=== PATIENT | male | born 1955 | race Caucasian/White ===

== ENCOUNTER 2016-12-05 20:45 | Emergency (ER) | payer BC ==
[2016-12-05 20:46] VITALS: BP 116/87
--- OUTSIDE RECORDS SUMMARY | 2016-12-05 21:50 | XMS REPORT | Continuity of Care Document ---
:1955 Author Organization [facility] ([facility]) Address [address] [place] [address] Phone [phone] Care Team Providers Name Role Phone Wen Degroot Primary Care Provider [phone] Source Comments This disclosure is being made pursuant to the Care Everywhere program, applicable federal and state laws, and may not contain all informaitonavailable regarding this patient.[facility] ([facility]) Active Allergies and Adverse Reactions Allergen Noted Date Severity Reactions Comments Iodinated Contrast Media - 09/05/2015 OTHER Patient reports "coma" Oral And Iv Dye after cerebral angiogram Current Medications Prescription Sig. Disp. Refills Start Date End Date Status multivitamin with Take 1 tablet Active minerals tablet by mouth daily. cholecalciferol Take 1,000 Active (VITAMIN D3) 1,000 Units by unit tablet mouth daily. isosorbide Take 30 mg by 1 08/06/2016 Active mononitrate 30 mg CR mouth daily. tablet metoPROLol succinate Take 50 mg by 0 09/17/2016 Active 50 mg XL tablet mouth at bedtime. hydrALAZINE 25 mg Take 25 mg by Active tablet mouth 3 times daily. lisinopril 10 mg Take 1 tablet 60 tablet 6 10/22/2016 Active tablet (10 mg total) by mouth 2 times daily. apixaban (ELIQUIS) 5 Take 1 tablet 60 tablet 3 11/27/2016 Active mg tablet (5 mg total) by mouth 2 times daily. amiodarone 200 mg Take 2 70 tablet 11 08/01/2016 Discontinued tablet tablets (400 7 mg) 2 times daily for 5 more days, then1 tablet (200 mg total) 2 times daily for 10 days. Then (200mg) daily thereafter. apixaban (ELIQUIS) 5 Take 1 tablet 60 tablet 3 08/01/2016 Discontinued mg tablet (5 mg total) 7 by mouth 2 times daily. 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 Cardiomyopathy 10/17/2015 Essential hypertension 10/17/2015 Chronic renal insufficiency 10/17/2015 Atrial flutter 09/07/2015 Acute systolic heart failure, ACC/AHA stage C 09/07/2015 Alcohol abuse 09/07/2015 Current smoker 09/07/2015 Resolved Problems Problem Noted Date Resolved Date Irregular heart rhythm 07/29/2016 08/01/2016 Malaise and fatigue 10/17/2015 10/17/2015 Most Recent Encounters Date Type Specialty Providers Description 11/27/2016 Hospital Encounter Internal Medicine Alcides Chacko Dx: Typical atrial - Primary MD Maddy flutter 11/27/2016 Telephone Heart and Vascular Alcides Chacko Dx: Irregular heart MD Maddy rhythm (Primary Dx) 11/27/2016 Surgery Cardiology Shamir Corea ABLATION A-FLUTTER 10/22/2016 Hospital Encounter Heart and Vascular Default, Other Dx: Hematospermia Billg - Defo (Primary Dx) Hamlet Romero MD 10/22/2016 Office Visit Heart and Vascular Default, Other Dx: Typical atrial Billg - Defo flutter (Primary Dx) Alcides hCacko MD Social History Tobacco Use Types Packs/Day Years Used Date Former Smoker Quit: 09/11/2016 Comments:one pack cigs lasts 2 weeks Alcohol Use Drinks/Week oz/Week Comments Yes 24 Cans of beer 14.4 Last Filed Vital Signs Vital Sign Reading Time Taken Blood Pressure 141/61 11/27/2016 4:01 PM CDT Pulse 70 11/27/2016 12:52 PM CDT Temperature 36 C (96.8 F) 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/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 Respiratory Rate 16 11/27/2016 8:40 AM CDT Height 1.981 m (6' 6") 11/27/2016 8:38 AM CDT Weight 108.863 kg (240 lb) 11/27/2016 8:38 AM CDT Body Mass Index 27.74 11/27/2016 8:38 AM CDT Oxygen Saturation 95% 11/27/2016 4:01 PM CDT Plan of Care Health Maintenance Due Date Last Done Comments HCV Screening 1955 Hepatitis B Vaccine (1 of 3 - Primary 1955 Series) Tdap Vaccine 12/06/1967 MMR Vaccine 1974 Td Vaccine 1974 Pneumococcal Vaccine (1 of 1 - PPSV23) 12/06/1975 Colonoscopy 2006 Prostate Cancer Screening 2006 Lipid Disorder Screening 09/08/2020 09/08/2015, 12/14/1997 Influenza Vaccine: Seasonal Completed Results from Last 3 Months CARD EP PROCEDURE (11/27/2016 1:01 PM) Shamir Luciano MD 11/30/20163:11 PM Atrial Flutter Ablation Procedure Report. Date: 11/27/2016 EP Attending:Shamir Corea MD, PhD EP Fellow:Chris Montejo MD, MPH Procedures:Electrophysiology study Radiofrequency ablation of atrial flutter Left atrial pacing via the coronary sinus Ultrasound guided femoral venous access Indications: 60-year-old gentleman with history of atrial flutter back in early 2015. 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 He underwent cardioversion, and over time did well. He returned in late July, with another episode of atrial flutter, again with poor LV function, and underwent cardioversion by Dr. Lenz. He was seen on follow up in EP clinic and after understanding treatment options, risks and benefits he elected to proceed with atrial flutter ablation for which he presents today. He is on apixaban for anticoagulation and has been taking same regularly. Arrives in sinus rhythm. Description After the risks and benefits of the procedure were explained and informed consent was obtained, the patient was brought to the electrophysiology lab in the unsedated and fasting state.He was connected to the EP lab monitoring system.Moderate conscious sedation was obtained with IV versed and IV fentanyl.The right groin was prepared and draped in a sterile fashion.Local anesthesia with lidocaine solution was used for the right groin vascular access sites.Using the modified Seldinger technique with ultrasound guidance, the following sheaths and catheters were inserted: 1. An 8.5 F and 7 F sheaths were placed in the right femoral vein.For additional support, the 8 F sheath was exchanged over a wire for a SR O sheath during the procedure. 2. A 7 F deflectable F/J curve coronary sinus (CS) catheter was inserted through the 7 F sheath and advanced into the coronary sinus (CS) for right and left atrial recording and pacing. 3. An 8 F [employer] Sánchez SmartTouch F-J Ablation Catheter was inserted through the 8.5 F sheath and advanced to the caval tricuspid isthmus (CTI) for mapping and ablation.This catheter was also used for mapping His potentials, CTI potentials (for multi-site tachycardia mapping), pacing/recording from the lateral RA, CTI, and advanced into the RV for pacing/recording from the RV.A CARTO mapping system was utilized during the procedure. The patient arrived in the electrophysiology laboratory in sinus rhythm.A diagnostic EP study was performed.Pacing and recording was performed from the right atrium, left atrium via the coronary sinus, and the right ventricle.Baseline intervals were recorded.Retrograde RV pacing was used to determine the VA block CL/evaluate VA conduction.Burst pacing was performed in the right and left atria without induction of sustained atrial arrhythmias. At baseline the cavotricuspid isthmus (CTI) time from the low RA (LRA) to CS was 86 ms and from the CS to LRA was 84 ms. Radiofrequency ablation of the CTI was then performed from the tricuspid valve to the inferior vena cava through the mid portion of the CTI using fluoroscopic guidance.CTI ablation was challenging due to a prominent Eustachian pouch and ridge. It was difficult to successfully ablate the lower lip of the isthmus near the IVC and required placement of a SR O sheath and reverse curve on the ablation catheter.During the procedure, the 8.5 F sheath was exchanged over a wire for a SR O Sheath for additional support, reach for the ablation catheter.Post ablation, bidirectional conduction block across the cavotricuspid isthmus was verified by pacing and mapping on either side of the ablation line and from within the coronary sinus.Post ablation, the CTI time from the LRA to CS was 181 ms and from the CS to LRA was 178 ms.A 20 minute observation period was allowed after the last ablation lesin and prior to repeating the pacing maneuvers. Evidence of bidirectional isthmus block persisted throughout the remainder of the study.Programmed atrial and burst pacing was performed in the right and left atria without induction of sustained atrial arrhythmias. At the end of the procedure, she remained in normal sinus rhythm. Catheters and sheaths were removed and hemostasis was obtained by direct manual pressure.He was allowed to awaken from sedation and then returned to his room in CPRU for post procedural monitoring. [place]/Red dots denote ablation lesions on CTI. Gold dots denote His position. Electrophysiology Study Data ECG (baseline): sinus rhythm, within normal limits ECG (post RFA): sinus rhythm, within normal limits Intervals Finding Baseline Rhythm NSR RR 885 AH 60 HV 45 VA 186 QRS 112 QT 420 Sinus node recovery time (SNRT) Pacing cycle length (ms) Basic cycle length (ms) SNRT (ms) Corrected SNRT (ms) 304 585 2285 485 319 515 3156 373 063 967 2478 531 Stimulation measurements Baseline AV block (Wenckebach) cycle length:410 ms (LA via the CS). Rare-related LBBB was noted with pacing cycle-length < 480 ms. AV Node ERP (AVNERP): 330 ms @ 600 ms (LA via CS) VA conduction, VA Wenckebach CL: 590 ms, decremental & concentric CTI times (LRA to CS=86 ms; CS to LRA=84 ms) Post ablation Bidirectional CTI block (LRA to UD=352 ms; CS to LRA sleh=617 ms) AV block (Wenckebach) cycle length:380 ms (HRA) Arrhythmias: none Complicationsnone Specimennone Estimated blood loss< 10 cc Conclusions 1.Femoral venous access with ultrasound guidance. 2.Baseline sinus rhythm with normal AH and HV intervals. 3.Normal sinus node function. 4.Normal AV node function. 5.Normal infra-Hisian function. 6.Decremental, concentric VA conduction without evidence of accessory pathway conduction. 7.No inducible SVT at baseline. 8.Successful caval tricuspid isthmus (CTI) ablation.Prominent pouch and ridge, with a gjkyplyoy-yc-weybaw lower lip of the CTI at the IVC junction.Support sheath required for ablation.Post ablation, bidirectional CTI block. Dr. Corea was present for the entire procedure. Chris Montejo MD MPH Fellow, Cardiovascular Medicine EP Attending I saw and evaluated the patient with the EP Fellow, Dr. Montejo, on . I discussed the case with the fellow and I agree with the findings and plan as documented in the note.I was present for the entire procedure. Shamir Corea MD, PhD Electrophysiology TYPE AND SCREEN (BLOOD TYPE(ABORH) AND RBC ANTIBODY SCREEN) (11/27/2016 8:54 AM ) Component Value Range ABORH A Positive Specimen Expiration Date 2016-11-30 Antibody Screen Negative Specimen Blood CHLORIDE (11/27/2016 8:51 AM) Component Value Range Chloride 103 95-107 mEq/L Specimen Blood BLOOD UREA NITROGEN (11/27/2016 8:51 AM) Component Value Range BUN 21(H) 10-20 mg/dL Specimen Blood SODIUM (11/27/2016 8:51 AM) Component Value Range Sodium 142 135-145 mEq/L Specimen Blood POTASSIUM (11/27/2016 8:51 AM) Component Value Range Potassium 4.4 3.5-5.0 mEq/L Specimen Blood GLUCOSE (11/27/2016 8:51 AM) Component Value Range Glucose 98Comment: 65-99 mg/dL The Expert Committee on the Diagnosis and Classification of Diabetes has defined impaired fasting glucose as greater than or equal to 100 mg/dL but less than 126 mg/dL.(Diabetes Care 28 (Suppl 1)S41,2005) Specimen Blood CREATININE (11/27/2016 8:51 AM) Component Value Range Creatinine 1.3(H)Comment: 0.6-1.2 mg/dL Creatinine switched to enzymatic method on 01/07/2011.GFR equation switched to IDMS-traceable MDRD equation on 01/07/2011. Calculated GFR values are not valid in clinical settings where serum creatinine is changing. Calculated GFR 57(L) >60 mL/min/1.73 m2 Specimen Blood CO2 (11/27/2016 8:51 AM) Component Value Range CO2 25 22-29 mEq/L Anion Gap 14 8-18 mEq/L Specimen Blood CBC (COMPLETE BLOOD COUNT) (11/27/2016 8:51 AM) Component Value Range WBC Count 10.4 3.7-10.5 K/MM3 RBC Count 5.57 4.50-6.20 M/MM3 Hemoglobin 16.7 13.2-17.7 g/dL Hematocrit 50 40-52 % MCV (Mean Corpuscular Volume) 90 82-99 FL MCH (Mean Corpuscular Hemoglobin) 30 25-35 PG MCHC (Mean Corpuscular Hemoglobin Concentration) 33 32-36 % Platelet Count 237 150-400 K/MM3 MPV (Mean Platelet Volume) 10.9 9.4-12.3 FL RBC Dist Width-STD 52.5(H) 35.1-43.9 FL RBC Distrib Width 15.9(H) 9.0-14.5 % Nucleated RBC 0 /100 WBC Specimen Whole Blood PT/INR (PROTHROMBIN TIME/INR) VENOUS (11/27/2016 8:51 AM) Component Value Range PT (Prothrombin Time) 13(H) 9-12 secs INR 1.2 <4.0 Specimen Blood ECG - EKG 12 LEAD (11/27/2016 8:35 AM)Only the most recent of2 resultswithin the time period is included. Component Value Range ECG SEVERITY - ABNORMAL ECG - VENT. RATE 71 bpm RR 845 ms P-R INTERVAL 172 ms QRSD INTERVAL 122 ms QT INTERVAL 440 ms QTC INTERVAL 479 ms P AXIS 52 degrees QRS AXIS -1 degrees T WAVE AXIS 93 degrees REPORT SINUS RHYTHM [Now Present] NONSPECIFIC INTRAVENTRICULAR CONDUCTION DELAY [Insig. Chg.] LVH WITH SECONDARY REPOLARIZATION ABNORMALITY [More Prom.] ANTERIOR Q WAVES, POSSIBLY DUE TO LVH [Remains] SIGNIFICANT RHYTHM AND ECG CONTOUR CHANGES [Now Absent] SINUS BRADYCARDIA Interpreting Physician: Jarod Dodge MD ECHO ADULT - ECHOCARDIOGRAM, TRANSTHORACIC (10/22/2016 10:52 AM) Component Value Range Interpretation Summary TRANSTHORACIC ECHOCARDIOGRAM Enlarged left ventricle. Severely decreased LV systolic function. Enlarged right ventricle. Decreased right ventricular systolic function. Severe Tricuspid regurgitation by Doppler. Patient Height (cm) 198.1 cm Patient Weight (kg) 109.3 kg Systolic Pressure (mmHg) 149 mmHg Diastolic Pressure (mmHg) 101 mmHg BSA (meters^2) 2.4 m^2 Left Ventricle (LV) Enlarged left ventricle. Normal LV wall thickness. Severely decreased LV systolic function. LV Ejection Fraction=28% (based on Biplane Method of Discs). Right Ventricle (RV) Enlarged right ventricle. Decreased right ventricular systolic function. Left and Right Atria (LA, RA) LA chamber size: enlarged. LA ESV index=55 ml/m2. Enlarged right atrial size. Mitral Valve (MV) Normal mitral valve leaflet morphology Mild mitral regurgitation by Doppler. Tricuspid Valve (TV) Normal tricuspid valve morphology Severe Tricuspid regurgitation by Doppler. TR appears severe with vena contracta > 7 mm and hepatic vein flow reversal. Aortic Valve (AoV) Mildly calcified aortic valve leaflets Trileaflet Aortic valve Trace aortic insufficiency Pulmonic Valve (PV) Pulmonic valve is not visualized Aorta and Pulmonary Artery (Ao, PA) The aortic root is normal size. Pericardium/Pleura There is no pericardial effusion. Procedures Complete 2D with Doppler, Color Flow and image documentation ( [id number]) I personally viewed the echocardiogram and approve the above interpretation Inf. Vena Cava (IVC) / Pulm. Veins The IVC diameter is enlarged ( > 2.1 cm). It collapses less than 50% with inspiration.This would support an RA pressure of 15 mmHg (range 10-20 mmHg). Primary ICD-9 Code Palpitations (785.1) IVSd 1.1 cm LVIDd 5.6 cm LVIDs 4.8 cm LVPWd 1.0 cm IVS/LVPW 1.1 Ao root diam 2.8 cm Ao root area 6.2 cm^2 LA dimension 5.3 cm LA/Ao 1.9 LVOT diam 2.1 cm LVOT area 3.5 cm^2 LVAd ap4 45.6 cm^2 EF(MOD-sp4) 25.8 % TR Max juana 241.3 cm/sec Low Range of LVEF 28 High Range of LVEF 28 Reason For Study Palpitations/dysrhythmia Bakery Team Leader hSai Rucker Interpreting Physician Hamlet Romero MD electronically signed on 2016-10-22 11:47:34.253
== END 2016-12-05 21:05 ==
LOC: ER 20:45
DX: Z02.83 Encounter for blood-alcohol and blood-drug test (principal); Y90.7 Blood alcohol level of 200-239 mg/100 ml
CPT/HCPCS: 36415; G0481

== ENCOUNTER 2019-12-29 11:45 | Inpatient (IN) ==
[2019-12-29] MEDS ORDERED: FUROSEMIDE 10 MG/ML VIAL IV SCH (12:00)
--- NOTE | 2019-12-29 12:08 | HP ---
Chief Complaint - Chief Complaint Date of Service: 12/29/19 Time of Service: 11:30 Chief Complaint: Lower extremity swelling and shortness of breath x3 days History of Present Illness: 64-year-old male with a past medical history of systolic congestive heart failure, atrial fibrillation/flutter status post ablation, CKD 3, hypertension, nonischemic cardiomyopathy presents from home with complaints of shortness of breath with exertion and swelling for the past 3 days. Over the past 1 month he has gained about 10 pounds of fluid weight. He denies chest pain or abdominal pain. Swelling is from his feet to his low back. He was seen in my office today and was found to be tachycardic with a heart rate in the 140s. Oxygen level of 98% and the rest of his vitals are within normal limits. He has 2+ pitting edema in bilateral lower extremities and swelling up to his thighs and low back. I will be admitting the patient for observation with congestive heart failure exacerbation. Medical History (Last Reviewed 12/29/19 @ 12:18 by Milton Joseph RN) CHF (congestive heart failure) ACC/AHA STAGE C Cardiomyopathy EF 20-25% History of atrial fibrillation Hx of atrial flutter Surgical History: Surgical History (Last Reviewed 12/29/19 @ 12:18 by Milton Joseph RN) H/O prior ablation treatment History of cardiac cath Family History: Family History (Last Reviewed 12/29/19 @ 12:18 by Milton Joseph RN) Mother Cancer Father Diabetes Social History: (Last Updated 12/29/19 @ 13:11 by Yadira Tavarez MD) Social History: Marital status: number of children: 3 current occupational status: retired Highest education level completed: high school graduate Service: No Tobacco: Smoking Status: Former smoker Alcohol: alcohol intake: current Substance Use: substance use type: does not use Dietary Habits: caffeine: Yes Review Of Systems (GEN) - Review of Systems Generalized/Overall Review: Absent: Fever EENTM: Absent: Eye Pain Respiratory: Present: Shortness of Breath Cardiac: Present: Edema - Bilateral lower extremities up to the low back. Absent: Chest Pain Abdominal: Absent: Abdominal Pain Misc: All systems neg except as marked Immunizations: IMMUNIZATION HX Immunizations Up to Date Yes History of Influenza Vaccine No Hx Pneumococcal Vaccination No Allergies/Adverse Reactions: Allergies Allergy/AdvReac Type Severity Reaction Status Date / Time Iodinated Contrast Media Allergy Verified 12/29/19 12:18 Home Medications: HOME MEDICATIONS Cholecalciferol (Vitamin D3) [Vitamin D] 2,000 unit PO DAILY 12/20/18 [Last Taken Unknown] Multivit with Minerals/Ginseng [Super Ginseng Multivit Cap] 1 ea PO DAILY 12/20/18 [Last Taken Unknown] metoprolol succinate 50 mg tablet,extended release 24 hr 50 mg PO DAILY 04/01/19 [Last Taken Unknown] spironolactone 25 mg tablet See Rx Instructions .ROUTE .COMPLEX #30 tablet 10/03/19 [Last Taken Unknown] atorvastatin 20 mg tablet 20 mg PO DAILY #30 tab 11/04/19 [Last Taken Unknown] furosemide 20 mg tablet 60 mg PO DAILY #90 tab 11/04/19 [Last Taken Unknown] lisinopril 2.5 mg tablet 2.5 mg PO DAILY #30 tab 11/04/19 [Last Taken Unknown] Zinc 50 mg PO DAILY 12/29/19 [Last Taken Unknown] potassium chloride 20 mEq tablet,extended release 20 meq PO DAILY #4 tab [Last Taken Unknown] Exam - Exam Constitutional: Present: Alert, Cooperative, Well developed, Well nourished, No distress ENT Exam: Present: hearing grossly normal Eye Exam: bilateral eye: normal inspection Neck: Present: non-tender, supple. Absent: lymphadenopathy (R), lymphadenopathy (L) Back Exam: Present: other - Mild pitting edema in the low back, Respiratory: Present: lungs clear, no respiratory distress, no accessory muscle use, No wheezing. Absent: crackles, rhonchi Cardiovascular/Chest: Present: normal peripheral pulses, no murmur, tachycardia Peripheral Pulses: dorsalis-pedis (R): 1+, dorsalis-pedis (L): 1+ Abdomen: Present: Normal bowel sounds, soft, nontender Extremity: Present: lower extremity edema - 2+ pitting bilateral lower extremities up to posterior thighs and low back Skin Exam: Present: normal color, warm/dry Neurologic: Present: alert, normal mood/affect Appearance: Present: appropriate appearance, appropriate insight Eye contact: Present: cooperative Thoughts: Present: normal mood /affect Assessment/Plan - Narrative Narrative: 64-year-old male with a past medical history of systolic congestive heart failure, atrial fibrillation/flutter status post ablation, CKD 3, hypertension, nonischemic cardiomyopathy presents from home with complaints of shortness of breath with exertion and swelling for the past 3 days. Over the past 1 month he has gained about 10 pounds of fluid weight. He denies chest pain or abdominal pain. Swelling is from his feet to his low back. He was seen in my office today and was found to be tachycardic with a heart rate in the 140s. Oxygen level of 98% and the rest of his vitals are within normal limits. He has 2+ pitting edema in bilateral lower extremities and swelling up to his thighs and low back. I will be admitting the patient for observation with volume overload, A. fib with RVR, acute on chronic kidney injury, and CHF exacerbation. Plan #1 obtain CBC, CMP, BNP, EKG #2 admit for observation #3 diuresis with Lasix 60 mg twice daily #4 monitor potassium and replete as needed #5 Place him on telemetry #6 low-salt diet #7 strict I's and O's and daily weights #8 start Cardizem 20 mg IV x 1 dose, resume his home dose of metoprolol in the morning - Assessment/Plan (1) Atrial fibrillation with rapid ventricular response Problem: Acute (2) Acute exacerbation of congestive heart failure Problem: Acute Qualifiers: Heart failure type: systolic Qualified Code(s): I50.23 - Acute on chronic systolic (congestive) heart failure (3) Acute kidney injury superimposed on chronic kidney disease Problem: Acute (4) SOB (shortness of breath) on exertion Problem: Acute (5) Tachycardia with heart rate 121-140 beats per minute Problem: Acute (6) Volume overload Problem: Acute (7) Hypertension Problem: Chronic Qualifiers: Hypertension type: essential hypertension Qualified Code(s): I10 - Essential (primary) hypertension (8) Anxiety and depression Problem: Chronic
[2019-12-29 12:25] LABS: Hematocrit 52.4 % (42.0-52.0); Hemoglobin 17.1 gm/dL (13.5-18.0); Mean Cell Volume 97.4 fl (78-100); Mean Corpuscular Hemoglobin 31.8 pg (27-31); Mean Corpuscular Hgb Conc 32.6 g/dl (32-36); Mean Platelet Volume 10.3 fl (8-11.3); Neutrophil # 6.3 K/mm3 (1.3-6.0); Neutrophil % 71.8 % (42-75.0); Platelet Count 214 K/mm3 (150-450); Red Blood Count 5.38 M/mm3 (4.7-6.0); White Blood Count 8.8 K/mm3 (4.0-10.5)
[2019-12-29 12:40] LABS: Albumin * 3.2 gm/dl (3.4-5.0); BUN/Creatinine Ratio 24.4 (9.0-21.6); Bilirubin, Total 1.1 mg/dL (0.0-1.1); Ca. Corrected For Albumin 9.4 mg/dL (8.4-10.2); Calcium * 9.1 mg/dL (7.9-10.9); Carbon Dioxide 25.6 mmol/L (24-32.6); Potassium 4.6 mmol/L (3.4-4.6); Total Protein 6.8 gm/dL (6.2-8.2)
[2019-12-29] MEDS ORDERED: DILTIAZEM HCL 5 MG/ML VIAL IV ONE (13:57)
[2019-12-29] MEDS: FUROSEMIDE 10 MG/ML VIAL IV SCH (17:28)
[2019-12-29] MEDS ORDERED: METOPROLOL TARTRATE 1 MG/ML AMPUL IV ONE ×2 (22:59→23:07)
[2019-12-30 06:06] LABS: Hemoglobin 14.9 gm/dL (13.5-18.0); Mean Cell Volume 95.2 fl (78-100); Mean Corpuscular Hemoglobin 30.8 pg (27-31); Mean Corpuscular Hgb Conc 32.4 g/dl (32-36); Mean Platelet Volume 10.6 fl (8-11.3); Neutrophil # 5.2 K/mm3 (1.3-6.0); Neutrophil % 64.5 % (42-75.0); Platelet Count 212 K/mm3 (150-450); Red Blood Count 4.83 M/mm3 (4.7-6.0); Red Cell Distribution Width 14.6 % (11.5-14.0); White Blood Count 8.1 K/mm3 (4.0-10.5)
[2019-12-30 06:21] LABS: Albumin * 2.7 gm/dl (3.4-5.0); Anion Gap 12.3 mmol/L (6.8-13.8); BUN/Creatinine Ratio 26.3 (9.0-21.6); Ca. Corrected For Albumin 8.8 mg/dL (8.4-10.2); Calcium * 8.1 mg/dL (7.9-10.9); Potassium 4.3 mmol/L (3.4-4.6); Total Protein 5.6 gm/dL (6.2-8.2)
[2019-12-30] MEDS ORDERED: DILTIAZEM HCL 5 MG/ML VIAL IV ONE (07:55)
[2019-12-30] MEDS: FUROSEMIDE 10 MG/ML VIAL IV SCH ×2 (08:30→17:48)
[2019-12-30] MEDS: CHOLECALCIFEROL 1,000 UNIT CAPSULE PO SCH (08:42)
[2019-12-30] MEDS: ROSUVASTATIN CALCIUM 10 MG TABLET PO SCH (08:43)
[2019-12-30] MEDS: ZINC SULFATE 220 MG CAPSULE PO SCH (08:43)
[2019-12-30] MEDS: MULTIVIT WITH MINERALS PO SCH (08:43)
[2019-12-30] MEDS: SPIRONOLACTONE 25 MG TABLET PO SCH (08:43)
[2019-12-30] MEDS: POTASSIUM CHLORIDE 20 MEQ TABLET.SA PO SCH (08:43)
[2019-12-30] MEDS: GINSENG PO SCH (08:43)
[2019-12-30] MEDS: METOPROLOL SUCCINATE 50 MG TABLET.SA PO SCH (08:52)
[2019-12-30] MEDS ORDERED: LISINOPRIL 2.5 MG TABLET PO SCH (09:00)
[2019-12-30] MEDS: DILTIAZEM HCL 125 MG in DEXTROSE 5 % IN WATER 100 ML IV PRN ×4 (09:02→20:02)
[2019-12-30] MEDS ORDERED: ONDANSETRON 4 MG TAB.RAPDIS PO PRN (14:55)
--- NOTE | 2019-12-30 23:07 | PN ---
Subjective - Date and Time Seen Date: 12/30/19 Time: 09:00 Subjective Narrative: Patient laying comfortably in bed this morning. HR back in the 140s. He denies CP, SOB. Swelling still 2+ to below his knee. He is done roughly 5 lbs from admission. His SARAH minimally improved. He feels well and he is hemodynamically stable. Maintaining sats on room air. Objective - Review of Systems Generalized/Overall Review: Reports: No Symptoms Reported EENTM: Reports: No Symptoms Reported Respiratory: Denies: Cough, Shortness of Breath Cardiac: Denies: Chest Pain, Palpitations Abdominal: Reports: No Symptoms Reported Genitourinary Symptoms: Reports: No Symptoms Reported Musculoskeletal Complaints: Reports: No Symptoms Reported Skin: Reports: No Symptoms Reported - Vitals Vitals: Last Vital Signs Temp 37.0 C 12/30/19 14:50 Pulse 99 12/30/19 21:00 Resp 20 12/30/19 21:00 BP 133/77 12/30/19 21:00 Pulse Ox 95 12/30/19 19:00 - Abnormal Lab Findings Abnormal Lab Findings: Abnormal Lab Results 12/30/19 12/30/19 Range/Units 05:50 05:50 RDW 14.6 H (11.5-14.0) % Monocytes % 10.7 H (0.0-9) % BUN 60 H (6-23) mg/dL Creatinine 2.28 H (0.4-1.4) mg/dL Est GFR (Non-Af Amer) 31 L (60-130) mL/min BUN/Creatinine Ratio 26.3 H (9.0-21.6) Alkaline Phosphatase 408 H (50-170) U/L Total Protein 5.6 L (6.2-8.2) gm/dL Albumin 2.7 L (3.4-5.0) gm/dl - Exam Constitutional: Present: Alert, Oriented x3 ENT Exam: Present: hearing grossly normal Neck: Present: full range of motion, supple Respiratory: Present: lungs clear, normal breath sounds Cardiovascular/Chest: Present: no murmur, irregularly irregular Abdomen: Present: soft, nontender Extremity: Present: swelling - 2+ edema b/l to just below the knees Skin Exam: Present: cool/dry Appearance: Present: appropriate appearance, appropriate insight Eye contact: Present: cooperative, good eye contact Thoughts: Present: normal thought pattern, normal mood /affect Assessment/Plan Plan Narrative: Patient started on diltiazem drip, titrate as needed. Will increase dose of toprol. Monitor HR with target rate between 90-100 SARAH unchanged. NOt worsening with diuresis, down 5 lbs. Continue lasix. Swelling appears to have improved some compared to admission VSS are stable, breathing easy. WIll wean drip once second dose of toprol administered. Continue chronic meds. Nurse to call with questions or concerns. Changed to inpatient. Nurse to call with questions or concerns. - Problems/Diagnosis (1) Acute exacerbation of congestive heart failure Problem: Acute Qualifiers: Heart failure type: systolic Qualified Code(s): I50.23 - Acute on chronic systolic (congestive) heart failure (2) Atrial fibrillation with rapid ventricular response Problem: Acute (3) Volume overload Problem: Acute (4) Acute kidney injury superimposed on chronic kidney disease Problem: Acute
[2019-12-31 06:36] LABS: Hematocrit 50.6 % (42.0-52.0); Hemoglobin 16.1 gm/dL (13.5-18.0); Mean Cell Volume 96.7 fl (78-100); Mean Corpuscular Hemoglobin 30.8 pg (27-31); Mean Corpuscular Hgb Conc 31.8 g/dl (32-36); Mean Platelet Volume 10.7 fl (8-11.3); Neutrophil # 5.3 K/mm3 (1.3-6.0); Platelet Count 222 K/mm3 (150-450); Red Blood Count 5.23 M/mm3 (4.7-6.0); Red Cell Distribution Width 14.7 % (11.5-14.0); White Blood Count 8.4 K/mm3 (4.0-10.5)
[2019-12-31 06:46] LABS: Albumin * 2.9 gm/dl (3.4-5.0); Anion Gap 15.1 mmol/L (6.8-13.8); BUN/Creatinine Ratio 23.3 (9.0-21.6); Bilirubin, Total 1.3 mg/dL (0.0-1.1); Ca. Corrected For Albumin 9.3 mg/dL (8.4-10.2); Calcium * 8.7 mg/dL (7.9-10.9); Carbon Dioxide 26.4 mmol/L (24-32.6); Potassium 4.5 mmol/L (3.4-4.6); Total Protein 6.1 gm/dL (6.2-8.2)
[2019-12-31] MEDS: GINSENG PO SCH (08:21)
[2019-12-31] MEDS: MULTIVIT WITH MINERALS PO SCH (08:21)
[2019-12-31] MEDS: POTASSIUM CHLORIDE 20 MEQ TABLET.SA PO SCH (08:21)
[2019-12-31] MEDS: SPIRONOLACTONE 25 MG TABLET PO SCH (08:21)
[2019-12-31] MEDS: FUROSEMIDE 10 MG/ML VIAL IV SCH (08:21)
[2019-12-31] MEDS: ZINC SULFATE 220 MG CAPSULE PO SCH (08:24)
[2019-12-31] MEDS: ROSUVASTATIN CALCIUM 10 MG TABLET PO SCH (08:24)
[2019-12-31] MEDS: CHOLECALCIFEROL 1,000 UNIT CAPSULE PO SCH (08:24)
[2019-12-31] MEDS: METOPROLOL SUCCINATE 50 MG TABLET.SA PO SCH (08:25)
--- NOTE | 2019-12-31 09:52 | PN ---
Subjective - Date and Time Seen Date: 12/31/19 Time: 09:10 Subjective Narrative: Mr. Mujica will said he had a long night because he feels like he is got a lot of fluid in his abdomen making it more difficult for him to breathe. He also still has a lot of swelling in his legs. His morning chemistries show the BUN and creatinine have both risen to 65 and 2.7 respectively this morning. I have been holding his Lasix and have tapered down his diltiazem to 5 mg through the night. I have discontinued the diltiazem IV this morning and have continue the metoprolol. His heart rate continues to be in the 100-110 range mostly. His examination shows the lungs are clear. Neck veins are not distended and the HJR is negative. His chest x-ray is unchanged and shows no pulmonary vascular congestion. He does have cardiomegaly. Trying to find his ejection fraction from previous echo this morning. I am going to research whether to start him on amiodarone or Lanoxin for purposes of rate control without causing further hypotension. With his history of CHF diltiazem is not an ideal choice. I will continue the beta-skye because most likely he will get rebound tachycardia without it and possibly rebound hypertension as well. His blood pressure is much better now that we have the stop the diltiazem and stopped diuresing. He had only 800 cc of urine output with yesterday morning's diuresis. He had 1600 cc of output on the admission diuresis. His weight is down approximately 1 kg from admission. His CBC is unremarkable. His alkaline phosphatase remains high as an isolated enzyme. He is not aware of any bony injuries. The rest of his liver enzymes are normal. I will order isoenzymes. He does have old healed fractures of the left ribs but I do not think that is the cause of the alkaline phosphatase elevation. Objective - Review of Systems Generalized/Overall Review: Reports: Malaise EENTM: Reports: No Symptoms Reported Respiratory: Reports: Other - He feels like it is a little more difficult to breathe because of some abdominal distention. 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 Cardiac: Reports: Edema, Palpitations, Other - He has a history of a dilated cardiomyopathy and congestive heart failure Abdominal: Reports: Other - Abdominal distention Genitourinary Symptoms: Reports: No Symptoms Reported Neurological: Reports: No Symptoms Reported Skin: Reports: No Symptoms Reported Endocrine: Reports: No Symptoms Reported - Vitals Vitals: Last Vital Signs Temp 36.8 C 12/31/19 08:30 Pulse 109 H 12/31/19 08:25 Resp 20 12/31/19 08:30 BP 126/78 12/31/19 08:25 Pulse Ox 96 12/31/19 08:30 - Abnormal Lab Findings Abnormal Lab Findings: Abnormal Lab Results 12/31/19 12/31/19 Range/Units 06:09 06:09 MCHC 31.8 L (32-36) g/dl RDW 14.7 H (11.5-14.0) % Immature Gran % (Auto) 0.50 H (0.001-0.429) % Immature Gran # (Auto) 0.04 H (0.000-0.0310) K/mm3 Monocytes % 12.1 H (0.0-9) % Anion Gap 15.1 H (6.8-13.8) mmol/L BUN 65 H (6-23) mg/dL Creatinine 2.79 H D (0.4-1.4) mg/dL Est GFR (Non-Af Amer) 25 L (60-130) mL/min BUN/Creatinine Ratio 23.3 H (9.0-21.6) Total Bilirubin 1.3 H (0.0-1.1) mg/dL AST 68 H (0-48) U/L ALT 83 H (19-67) U/L Alkaline Phosphatase 484 H (50-170) U/L Total Protein 6.1 L (6.2-8.2) gm/dL Albumin 2.9 L (3.4-5.0) gm/dl - EKG/Xray Findings EKG: atrial fibrillation, other - With mild RVR EKG read: Interp. by me XRAY: chest - Including the admission chest x-ray and the repeat chest x-ray from this morning Interpretation: Reviewed by me - Exam Constitutional: Present: Alert, Oriented x3, Cooperative, Well developed, Well nourished, Mild distress, Middle aged, Obese ENT Exam: Present: normal ENT inspection, hearing grossly normal, pharynx normal, TMs normal Neck: Present: non-tender, full range of motion, supple, normal inspection, trachea midline Breasts: Present: Nontender Respiratory: Present: chest non-tender, lungs clear, normal breath sounds, no respiratory distress, no accessory muscle use Cardiovascular/Chest: Present: no chest tenderness, no JVD, no murmur, no rub, tachycardia, irregularly irregular Abdomen: Present: Normal bowel sounds, soft, nontender, distended - And tympanitic /Rectal: Present: Exam deferred Extremity: Present: normal range of motion, non-tender, normal inspection, no pedal edema, no calf tenderness, normal capillary refill Skin Exam: Present: normal color, warm/dry, no cyanosis Lymphatic: Present: no adenopathy Neurologic: Present: clinical education manager II-XII nml as tested, normal cerebellar test, no motor/sensory deficits, alert, normal mood/affect, oriented x 3 Appearance: Present: appropriate appearance, appropriate insight, neat, no memory impairment Eye contact: Present: cooperative, good eye contact, normal speech, avoids eye contact Thoughts: Present: normal thought pattern, no apparent hallucination Assessment/Plan Plan Narrative: 1. Continue to hold his diuretics 2. Discontinue the diltiazem drip 3. Continue metoprolol ER 50 mg 1 daily 4. Give fleets enema 5. Start VTE orders including intermittent pressure cuffs on the legs 6. Increase protein in the diet - Problems/Diagnosis (1) Tachycardia with heart rate 121-140 beats per minute Problem: Acute (2) Atrial fibrillation with rapid ventricular response Problem: Acute (3) Acute kidney injury superimposed on chronic kidney disease Problem: Acute (4) Congestive heart failure (CHF) Problem: Chronic Qualifiers: Heart failure type: systolic Heart failure chronicity: chronic Qualified Code(s): I50.22 - Chronic systolic (congestive) heart failure (5) Abnormal LFTs Problem: Chronic
[2019-12-31] MEDS ORDERED: ENOXAPARIN SODIUM 40 MG/0.4 ML SYRG SC SCH (13:45)
[2019-12-31] MEDS ORDERED: METOPROLOL SUCCINATE 50 MG TABLET.SA PO ONE (17:49)
--- NOTE | 2019-12-31 18:34 | PN ---
Progess Note - Interim Date: 12/31/19 Time: 18:32 Narrative: 12/31/19 18:32 Jay's blood pressure has remained very stable in the 120s over 70s. His pulse rate however has crept up between 110 and 120 and has been as high as 126. I am increasing the metoprolol ER to 100 mg and giving a dose now. I will recheck his pulse rate in 2 hours and if is not improved I will be adding Lanoxin.
[2019-12-31] MEDS: DIGOXIN 0.25 MG/ML AMPUL IV SCH (21:16)
[2020-01-01] MEDS: DIGOXIN 0.25 MG/ML AMPUL IV SCH (03:14)
[2020-01-01 06:34] LABS: Hematocrit 51.9 % (42.0-52.0); Hemoglobin 16.4 gm/dL (13.5-18.0); Mean Cell Volume 96.3 fl (78-100); Mean Corpuscular Hemoglobin 30.4 pg (27-31); Mean Corpuscular Hgb Conc 31.6 g/dl (32-36); Mean Platelet Volume 10.3 fl (8-11.3); Neutrophil # 5.6 K/mm3 (1.3-6.0); Neutrophil % 67.3 % (42-75.0); Platelet Count 221 K/mm3 (150-450); Red Blood Count 5.39 M/mm3 (4.7-6.0); Red Cell Distribution Width 14.7 % (11.5-14.0); White Blood Count 8.3 K/mm3 (4.0-10.5)
[2020-01-01 06:49] LABS: Anion Gap 11.5 mmol/L (6.8-13.8); BUN/Creatinine Ratio 24.7 (9.0-21.6); Bilirubin, Total 1.1 mg/dL (0.0-1.1); Ca. Corrected For Albumin 9.1 mg/dL (8.4-10.2); Calcium * 8.6 mg/dL (7.9-10.9); Carbon Dioxide 29.7 mmol/L (24-32.6); Potassium 5.2 mmol/L (3.4-4.6); Total Protein 6.4 gm/dL (6.2-8.2)
[2020-01-01] MEDS ORDERED: DILTIAZEM HCL 5 MG/ML VIAL IV ONE ×2 (08:10→08:12)
[2020-01-01 08:18] LABS: Hematocrit 51.4 % (42.0-52.0); Hemoglobin 16.5 gm/dL (13.5-18.0); Mean Cell Volume 96.8 fl (78-100); Mean Corpuscular Hemoglobin 31.1 pg (27-31); Mean Corpuscular Hgb Conc 32.1 g/dl (32-36); Mean Platelet Volume 10.4 fl (8-11.3); Neutrophil # 6.2 K/mm3 (1.3-6.0); Neutrophil % 65.9 % (42-75.0); Platelet Count 203 K/mm3 (150-450); Red Blood Count 5.31 M/mm3 (4.7-6.0); Red Cell Distribution Width 14.8 % (11.5-14.0); White Blood Count 9.5 K/mm3 (4.0-10.5)
[2020-01-01 08:28] LABS: Prothrombin Time (Patient) 13.8 Seconds (9.1-10.7)
[2020-01-01 08:32] LABS: INR 1.41 INR (0.92-1.08); Partial Thrombolplastin Time 25.7 Seconds (24-32)
[2020-01-01 08:36] LABS: Anion Gap 14.3 mmol/L (6.8-13.8); BUN/Creatinine Ratio 25.9 (9.0-21.6); Bilirubin, Total 1.2 mg/dL (0.0-1.1); Ca. Corrected For Albumin 9.4 mg/dL (8.4-10.2); Calcium * 8.9 mg/dL (7.9-10.9); Carbon Dioxide 26.3 mmol/L (24-32.6); Potassium 4.6 mmol/L (3.4-4.6); Total Protein 6.4 gm/dL (6.2-8.2); Troponin I 0.062 ng/mL (0.00-0.10)
[2020-01-01] MEDS ORDERED: ALTEPLASE 90 MG in WATER FOR INJECTION,STERILE 100 ML IV STA (08:54)
[2020-01-01] MEDS ORDERED: METOPROLOL SUCCINATE 100 MG TABLET.SA PO SCH (09:00)
--- NOTE | 2020-01-01 09:52 | PN ---
Markos Note - Interim Date: 01/01/20 Time: 09:42 Narrative: 01/01/20 09:42 I received a call from Mr. Mujica's nurse at 8:07 AM this morning. I called back at 8:08 AM as I could not take the call she called. I spoke with the ER doctor who informed me he had been called to evaluate the patient for what appears to be a stroke. He was noncommunicative and flaccid on the left side. He asked me to come in and take care of the patient since he had ER patients waiting. I arrived here at 8:32 AM and was at his bedside at that time. My examination confirms left-sided hemiparesis. He is toe up on the left foot. His eyes are fixed and engaged but not diverted. He does not respond to verbal commands or calling his name. He appears restless. I confirmed that he has had a stroke. And a CAT scan was done stat and there is no evidence of intracranial bleeding. Nurses rounded on him at change of shift at 7:00 and he was sleeping and snoring at that time. He had vital signs recorded o 0300. But there is no mention of any physical changes at that time. It is unknown when the last time he was observed to be at his normal baseline. His morning nurse went to check on him at 8:00 because of a change in his monitor pattern when his heart rate jumped up from 117 into the 130s. As when she found him with the apparent stroke. I have called the stroke team at the [facility] and advised not giving Activase because we do not know how long it is been since he was normal and it could be more than 4-1/2 hours which would be outside of the safety window. The concern is that if this happened more than 4-1/2 hours ago he would be at high risk for a bleed from the TPA. Chest x-ray done yesterday was unremarkable. He does have cardiomegaly chronically. His INR is slightly elevated at 1.41 and the reason is unknown. I had ordered VTE prophylaxis including enoxaparin but he refused it. He also refused heparin. He states he has had atrial fibrillation for a long time and nobody is ever offered him blood thinners before. For heart rate control he was initially on diltiazem but because of his CHF history I weaned him off of that yesterday and replaced it with Lanoxin. He initially had hypotension on admission and I did not want to risk another hypotensive episode with amiodarone. He did receive some IV diltiazem this morning from the ER doctor to get his heart rate down and it has decreased from the 130s back into the 1 teens. The plan at this point is to [facility] him to the [facility] as soon as possible so that interventional thrombectomy can be attempted. Once again, they have advised against using Activase.
--- NOTE | 2020-01-01 10:07 | DS ---
Transfer Discharge Summary - Diagnosis(s)/Problems (1) Tachycardia with heart rate 121-140 beats per minute Problem: Acute (2) Atrial fibrillation with rapid ventricular response Problem: Acute (3) Acute kidney injury superimposed on chronic kidney disease Problem: Acute (4) Congestive heart failure (CHF) Problem: Chronic (5) Abnormal LFTs Problem: Chronic - Course Description of Stay: Jay Mujica is a patient of Dr. Tavarez who saw him on the and admitted him for what appeared to be congestive heart failure as he had fluid swelling up to his thighs and his low back. Patient said he also had fluid in his abdomen. He was then admitted through the emergency room. They given him 80 of Lasix IV and he diuresed about 1600 cc of fluid. He was also in atrial fib with RVR and hypotensive. Dr. Nella watson then took care of him on Thursday since Dr. Tavarez was not available. He received another dose of IV Lasix but his output was only about 800 cc. There was a worsening of his renal status. His care was then turned over to me for the weekend Thursday evening. I saw him the next morning's on Thursday and ordered VTE prophylaxis for him including enoxaparin which she refused. He was not on any prophylaxis for stroke prevention. When asked about it he stated that nobody had ever put him on blood thinners before and that he did not want to take any now. I titrated the diltiazem drip to 8 mg and then to 5 mg and then stopped it as there was no increase in his heart rate. I weighed between amiodarone and digoxin for rate control. I chose not to use amiodarone because I did not want to risk another hypotensive episode. My evaluation showed that he had peripheral edema in his legs but in his core was dry. His BUN to creatinine ratio was 24 and although he is usually in stage III CKD he had acute kidney injury into stage IV. I have not given him any Lasix since letting him rehydrate and his blood pressure stabilized just with rehydration. This morning's creatinine is finally decreasing (2.57) but he is still at stage IV. I started him on Lanoxin giving him 0.25 mg at 9 PM and 0.25 mg at 3 AM. His heart rate was well controlled until 8:00 when it suddenly jumped up from the 1 teens into the 130s. His nurse last night said that he sat up on the bed at 3:00 when she went in to give him his Lanoxin and was fine at that time. Every time the checked on him through the night he was sleeping and snoring. The only change was at 8 AM when his heart rate increased and that is when they found him with the stroke symptoms. His blood sugars were over 500 on admission. He was started on an insulin drip. This lowered his blood sugars to 80 and I discontinued the insulin drip. He has been continued on his usual diabetic medicines. Yesterday his blood sugars were mostly in the 100s. I received a call from Mr. Mujica's nurse at 8:07 AM this morning. I called back at 8:08 AM as I could not take the call when she called. I spoke with the ER doctor who informed me he had been called to evaluate the patient for what appears to be a stroke. He was noncommunicative and flaccid on the left side. He asked me to come in and take care of the patient since he had ER patients waiting. I arrived here at 8:32 AM and was at his bedside at that time. My examination confirms left-sided hemiparesis. He is toe up on the left foot. His eyes are fixed in the midline but not diverted. There is no scanning. He does not respond to verbal commands or calling his name. He appears restless. I confirmed that he has had a stroke. A CAT scan was done stat and there is no evidence of intracranial bleeding. Nurses rounded on him at change of shift at 7:00 and he was sleeping and snoring at that time. He had vital signs recorded o 0300. But there is no mention of any physical changes at that time. His night nurse was contacted and she said the last time he was at his normal baseline was at 3 AM when he sat up to take his medicine. That is the last known time he was at his normal baseline. His morning nurse went to check on him at 8:00 because of a change in his monitor pattern when his heart rate jumped up from 117 into the 130s. That is when she found him with the apparent stroke. I have called the stroke team at the [facility] and they advised not giving Activase because we do not know how long it is been since he was normal and it could be more than 4-1/2 hours which would be outside of the safety window. The concern is that if this happened more than 4-1/2 hours ago he would be at high risk for a bleed from the TPA. Chest x-ray done yesterday was unremarkable. He does have cardiomegaly chronically. His INR is slightly elevated at 1.41 and the reason is unknown. I had ordered VTE prophylaxis including enoxaparin but he refused it. He also refused heparin. He states he has had atrial fibrillation for a long time and nobody has ever offered him blood thinners before. For heart rate control he was initially on diltiazem but because of his CHF history I weaned him off of that yesterday and replaced it with Lanoxin. He initially had hypotension on admission and I did not want to risk another hypotensive episode with amiodarone. He did receive some IV diltiazem this morning from the ER doctor to get his heart rate down and it has decreased from the 130s back into the 1 teens. The plan at this point is to [facility] him to the [facility] as soon as possible so that interventional thrombectomy can be attempted. Once again, they have advised against using Activase. Procedures Performed: none - Results and Findings Results and Findings: Laboratory Results - last 24 hr 01/01/20 01/01/20 01/01/20 06:20 06:20 08:10 WBC 8.3 9.5 RBC 5.39 5.31 Hgb 16.4 16.5 Hct 51.9 51.4 MCV 96.3 96.8 MCH 30.4 31.1 H MCHC 31.6 L 32.1 RDW 14.7 H 14.8 H Plt Count 221 203 MPV 10.3 10.4 Immature Gran % (Auto) 0.20 0.30 Immature Gran # (Auto) 0.02 0.03 Neutrophils % 67.3 65.9 Lymphocytes % 18.0 L 19.2 L Monocytes % 12.3 H 12.9 H Eosinophils % 1.8 1.4 Basophils % 0.4 0.3 Nucleated RBC % 0.0 0.0 Neutrophils # 5.6 6.2 H Lymphocytes # 1.49 L 1.82 Monocytes # 1.0 1.2 H Eosinophils # 0.2 0.1 Absolute Basophils 0.0 0.0 ESR PT INR (Anticoag Therapy) PTT ([place]) Sodium 137 Plasma Sodium 137 Potassium 5.2 H Chloride 101 Carbon Dioxide 29.7 Anion Gap 11.5 BUN 63 H Creatinine 2.55 H Est GFR (Non-Af Amer) 27 L BUN/Creatinine Ratio 24.7 H Random Glucose 92 Calcium 8.6 Calcium Adj for Albumin 9.1 Total Bilirubin 1.1 AST 58 H ALT 78 H Alkaline Phosphatase 496 H Troponin I Total Protein 6.4 Albumin 3.0 L 01/01/20 01/01/20 01/01/20 08:10 08:10 08:10 WBC RBC Hgb Hct MCV MCH MCHC RDW Plt Count MPV Immature Gran % (Auto) Immature Gran # (Auto) Neutrophils % Lymphocytes % Monocytes % Eosinophils % Basophils % Nucleated RBC % Neutrophils # Lymphocytes # Monocytes # Eosinophils # Absolute Basophils ESR 2 PT 13.8 H INR (Anticoag Therapy) 1.41 H PTT ([place]) 25.7 Sodium 138 Plasma Sodium 138 Potassium 4.6 Chloride 102 Carbon Dioxide 26.3 Anion Gap 14.3 H BUN 67 H Creatinine 2.59 H Est GFR (Non-Af Amer) 27 L BUN/Creatinine Ratio 25.9 H Random Glucose 97 Calcium 8.9 Calcium Adj for Albumin 9.4 Total Bilirubin 1.2 H AST 55 H ALT 83 H Alkaline Phosphatase 470 H Troponin I 0.062 Total Protein 6.4 Albumin 3.0 L - Medications Medications: Active Medications Cholecalciferol (Vitamin D) 2,000 unit PO DAILY [facility] Stop: 01/29/20 09:01 Last Admin: 12/31/19 08:24 Dose: 2,000 unit Documented by: Enoxaparin Sodium (Lovenox) 40 mg SC Q24H [place] Stop: 01/30/20 13:46 Last Admin: 12/31/19 14:21 Dose: Not Given Documented by: Furosemide (Lasix) 60 mg IV BID@0800,1600 [facility] Stop: 01/28/20 17:01 Last Admin: 12/31/19 08:21 Dose: Not Given Documented by: Diltiazem HCl 125 mg/ Dextrose (/Water) 125 mls @ 0 mls/hr IV TITR PRN; Protocol PRN Reason: Arrhythmia Stop: 01/29/20 07:56 Last Titration: 12/31/19 08:30 Dose: 0 mg/hr, 0 mls/hr Documented by: Multivit With Minerals/Ginseng [ Super Ginseng Multivit Cap] 1 ea PO DAILY [facility] Stop: 01/29/20 09:01 Last Admin: 12/31/19 08:21 Dose: Not Given Documented by: Ondansetron HCl (Zofran Odt) 4 mg PO Q6H PRN PRN Reason: Nausea And Vomiting Stop: 01/29/20 14:56 Last Admin: 12/30/19 20:05 Dose: 4 mg Documented by: Potassium Chloride (K-Dur) 20 meq PO DAILY [facility] Stop: 01/29/20 09:01 Last Admin: 12/31/19 08:21 Dose: Not Given Documented by: Rosuvastatin Calcium (Crestor) 10 mg PO DAILY [facility] Stop: 01/29/20 09:01 Last Admin: 12/31/19 08:24 Dose: 10 mg Documented by: Spironolactone (Aldactone) 25 mg PO DAILY [facility] Stop: 01/29/20 09:01 Last Admin: 12/31/19 08:21 Dose: Not Given Documented by: Zinc Sulfate (Zinc Sulfate) 220 mg PO DAILY [facility] Stop: 01/29/20 09:01 Last Admin: 12/31/19 08:24 Dose: 220 mg Documented by: Discontinued Medications Digoxin (Lanoxin) 0.25 mg IV Q6H [facility] Stop: 01/01/20 03:00 Last Admin: 01/01/20 03:14 Dose: 0.25 mg Documented by: Diltiazem HCl (Cardizem) 20 mg IV ONCE ONE Stop: 12/29/19 13:58 Last Admin: 12/29/19 14:40 Dose: 20 mg Documented by: Diltiazem HCl (Cardizem) 10 mg IV ONCE ONE Stop: 12/30/19 07:56 Last Admin: 12/30/19 08:34 Dose: 10 mg Documented by: Diltiazem HCl (Cardizem) 25 mg IV ONCE ONE Stop: 01/01/20 08:13 Last Admin: 01/01/20 08:13 Dose: 25 mg Documented by: Furosemide (Lasix) 80 mg IV BID [facility] Stop: 01/28/20 12:01 Last Admin: 12/29/19 12:59 Dose: 80 mg Documented by: Metoprolol Succinate (Toprol Xl) 50 mg PO DAILY [facility] Stop: 01/29/20 09:01 Last Admin: 12/31/19 08:25 Dose: 50 mg Documented by: Metoprolol Succinate (Toprol Xl) 50 mg PO ONCE ONE Stop: 12/31/19 17:50 Last Admin: 12/31/19 18:21 Dose: 50 mg Documented by: Metoprolol Tartrate (Lopressor) 5 mg IV ONCE ONE Stop: 12/29/19 23:08 Last Admin: 12/29/19 23:31 Dose: 5 mg Documented by: - Disposition Disposition: Short Term Hospital Inpatient Condition: Critical Discharge Date: 01/01/20 Discharge Time: 10:22
[2020-01-01 11:28] VITALS: BP 133/95
== END 2020-01-01 10:25 | disposition short-term general hospital (02) | DRG 308 ==
LOC: MS
PROVIDERS: ADMIT Internal Medicine; ATTEND Internal Medicine
CPT/HCPCS: 36415; 70450; 71020; 71046; 80053; 83519; 83880; 84080; 84484; 85025; 85610; 85652; 85730; 93005; 96374; 96375; 96376; G0378